=== PATIENT | male | born 1940 | race Caucasian/White ===

== ENCOUNTER 2016-10-12 10:16 | Outpatient (CLI) | payer MEDICARE, OTHER | END 2016-10-12 10:17 | disposition home or self-care (01) | DX: R97.20 Elevated prostate specific antigen [PSA] (principal) ==

== ENCOUNTER 2017-08-21 07:40 | Day surgery (SDC) | payer MEDICARE, OTHER ==
--- NOTE | 2017-08-21 07:31 | HISTORY & PHYSICAL EXAMINATION ---
HPI - History of Present Illness HPI Comment/Other: Patient is here for initial reducible right inguinal hernia and umbilical hernia. Current Meds: None Physical Exam General: well developed, well nourished, in no acute distress Lungs: clear bilaterally to A & P Heart: regular rate and rhythm, S1, S2 without murmurs, rubs, gallops, or clicks Abdomen: Small umbilical hernia easily reducible and fascial defect feels to be less than 1 cm. Genitalia: Moderate sized right inguinal hernia is easily reducible. No left inguinal hernia noted to Pulses: pulses normal in all 4 extremities Extremities: no clubbing, cyanosis, edema, or deformity noted with normal full range of motion of all joints Cervical Nodes: no significant adenopathy Psych: alert and cooperative; normal mood and affect; normal attention span and concentration Impression & Recommendations: Problem # 1: right inguinal hernia, umbilical hernia Will proceed with surgical repair. PMH/PSH - Past Medical History Cardiovascular: positive: Hypertension, Pulmonary embolism Respiratory: positive: COPD Endocrine/Autoimmune: positive: None GI: positive: None : positive: Benign prostate hypertrophy HEENT: positive: None Psych: positive: None Musculoskeletal: positive: Chronic back pain Derm: positive: Other MRSA Hx?: No - Past Surgical History Ortho: positive: Arthroscopic surgery HEENT: positive: Cataracts Social & Family Hx - Social History Does the pt smoke?: Yes Smoking Status: Former smoker ETOH Use: Wine Meds/Allgy - Home Medications Home Medications: Ambulatory Orders Medication Instructions Recorded Confirmed No Known Home Medications [No 08/04/17 Known Home Medications] - Allergies Allergies/Adverse Reactions: Allergies Allergy/AdvReac Type Severity Reaction Status Date / Time No Known Drug Allergies Allergy Verified 08/04/17 12:42
[2017-08-21] MEDS ORDERED: ceFAZolin 2 GM/50 ML 2 GM/50 ML BAG IV ONE (07:55)
[2017-08-21] MEDS ORDERED: LACTATED RINGERS 1,000 ML IV ONE ×2 (08:00→09:33)
[2017-08-21] MEDS ORDERED: ACETAMINOPHEN 1,000 MG/100 ML 100 ML IV ONE (09:30)
[2017-08-21] MEDS ORDERED: ePHEDrine 50 MG/ML VIAL IVP ONE (09:30)
[2017-08-21] MEDS ORDERED: GLYCOPYRROLATE 1 MG/5 ML VIAL IVP ONE (09:30)
[2017-08-21] MEDS ORDERED: NEOSTIGMINE 1 MG/1 ML 10 ML MDV IVP ONE (09:30)
[2017-08-21] MEDS ORDERED: ROCURONIUM 50 MG/5 ML VIAL IVP ONE (09:30)
[2017-08-21] MEDS ORDERED: LIDOCAINE-MPF 2% 5 ML VIAL IM ONE (09:30)
[2017-08-21] MEDS ORDERED: DEXAMETHASONE 4 MG/ML VIAL IVP ONE (09:30)
[2017-08-21] MEDS ORDERED: MIDAZOLAM 2 MG/2 ML VIAL IVP ONE (09:30)
[2017-08-21] MEDS ORDERED: PROPOFOL 200 MG/20 ML VIAL IVP ONE (09:30)
[2017-08-21] MEDS ORDERED: ONDANSETRON 4 MG/2 ML VIAL IVP ONE (09:30)
[2017-08-21] MEDS ORDERED: fentaNYL 100 MCG/2 ML VIAL IVP ONE (09:30)
[2017-08-21] MEDS ORDERED: BUPIVACAINE 0.5% PF 30 ML VIAL INFIL ONE (09:32)
--- NOTE | 2017-08-21 11:48 | PROCEDURE REPORT ---
DATE OF SERVICE: 08/21/2017 Physician: Nona Gordon MD DATE OF SURGERY: 08/21/2017 BULB WEEDER: Dr. Gordon. PREOPERATIVE DIAGNOSIS: Umbilical and right inguinal hernias which are reducible. POSTOPERATIVE DIAGNOSIS: Umbilical and right inguinal hernias which are reducible. INDICATIONS FOR PROCEDURE: This is a 77-year-old gentleman with a symptomatic initial reducible right inguinal hernia and an incidental umbilical hernia. FINDINGS: After obtaining informed consent from the patient, he was brought into the operating room, positioned on the operating table in the supine position, taking note of pressure points. He was intubated by Anesthesia. SCD boots were applied. He was then prepped and draped in the usual sterile fashion. A timeout was taken according to protocol. An infraumbilical 1.5 cm incision was created and deepened down to the anterior rectus sheath. This was incised towards the right lateral abdomen approximately 1 cm in length. The underlying rectus muscle was visualized. S retractors were placed in the retrorectal space and the surgeon's finger used to dissect the space. The dissecting balloon was then inserted in the space and inflated under direct visualization. The balloon was allowed to create hemostasis and then was removed after a period of a few minutes, the operative balloon was then placed in the retrorectal space and the space insufflated. Two 5 mm incisions were created in the midline and the trocars were inserted under visualization. The anatomic landmarks were identified including the pubic bone, the epigastric vessels and the cord structures. The filmy tissue overlying the pubic bone was cleared to create space for the mesh. The right lateral abdominal wall was then dissected dissecting the peritoneum down. I worked my way towards the cord structures, protecting the epigastric vessels along their length. The cord structures were then identified and a small partially reduced indirect hernia was noted. The hernia sac was completely dissected from the cremasteric fibers. The vas deferens and cord structures were identified. I then turned my attention to the direct space and a small direct hernia was also noted in this location. The hernia sac was fully reduced, After achieving adequate dissection and reduction of both hernia sacs, a large, medium weight right Bard mesh was inserted through the umbilical port and was positioned appropriately. It was tacked with one tack above the pubic symphysis, ensuring the overlap from the midline of approximately 1 cm and laterally to the right lateral abdominal wall, ensuring palpation of the surgeon's contralateral hand to avoid nerve structures. The mesh was then held into place while the retrorectal space was desufflated, ensuring that the hernia sac was well away from the hernia defects. The trocars were then removed. Attention was then placed to the umbilical hernia. The umbilical stalk was from the fascial defect. A small hernia defect was noted. This was connected to the inferior incision with electrocautery. The defect was then closed with 3 interrupted [id number] 2-0 Prolene sutures. The umbilical skin was then tacked to the anterior rectus sheath with 3-0 Vicryl. 30 mL of local anesthetic was administered into the incisions. The incisions were then closed with running 4-0 Monocryl. Dermabond was applied. The patient was extubated and taken to the recovery room in stable condition. ESTIMATED BLOOD LOSS: 10 mL COMPLICATIONS: None. PROCEDURES PERFORMED: Laparoscopic right inguinal hernia repair with mesh and umbilical hernia repair. TD: 08/21/2017 12:47 DYLAN
[2017-08-21 12:40] VITALS: BP 156/84
== END 2017-08-21 07:41 | disposition home or self-care (01) ==
LOC: SDS 07:40
PROVIDERS: ATTEND Surgery
PROC: 0YU54JZ Supplement Right Inguinal Region with Synthetic Substitute, Percutaneous Endoscopic Approach (ICD-10-PCS; principal; 2017-08-21 09:00)
PROC: 0WQF0ZZ Repair Abdominal Wall, Open Approach (ICD-10-PCS; 2017-08-21 09:00)
DX: K40.90 Unilateral inguinal hernia, without obstruction or gangrene, not specified as recurrent (principal); K42.9 Umbilical hernia without obstruction or gangrene; I10 Essential (primary) hypertension; Z86.711 Personal history of pulmonary embolism
CPT/HCPCS: 49585; 49650; C1781; J0131; J0690; J7120

== ENCOUNTER 2017-11-20 11:16 | Outpatient (CLI) | payer MEDICARE, OTHER | END 2017-11-20 11:17 | disposition home or self-care (01) | LOC: LAB.F 11:16 | PROVIDERS: ATTEND Urology | DX: R97.20 Elevated prostate specific antigen [PSA] (principal) | CPT/HCPCS: 36415; 84153 ==

== ENCOUNTER 2017-12-04 12:58 | Outpatient (CLI) | payer MEDICARE, OTHER ==
--- NOTE | 2017-12-04 15:43 | MRI Report ---
EXAM: MRI PELVIS WITHOUT CONTRAST EXAM DATE: 12/04/2017 01:45 PM. CLINICAL HISTORY: Muscle weakness, sensory neuropathy, weakness. COMPARISON: None. TECHNIQUE: Multiplanar, multisequence T1-weighted and fluid-sensitive sequences of the pelvis without contrast. Other: None. FINDINGS: Bones: No fractures or subluxations. No marrow edema or bone lesions. Lower Lumbar Spine: Degenerative disk space narrowing at L5-S1. Sacroiliac Joints: No effusion or sacroiliitis. Right Hip: No acetabular retroversion. Femoral head-neck offset is within normal limits. No effusion. Left Hip: No acetabular retroversion. Femoral head-neck offset is within normal limits. No effusion. Symphysis Pubis: Unremarkable. Musculature: Mild fatty atrophy and minimal edema at the gluteus kris muscles. Mild edema within t he visualized proximal right vastus muscles. Pelvic Cavity: Numerous diverticuli at the urinary bladder. Postoperative changes at the prostate gla nd from previous transurethral resection. Sigmoid colon diverticulosis. No free fluid or lymphadenopa thy. Other: The visualized sciatic nerves are unremarkable. No bursitis. The subcutaneous tissues are unre markable. IMPRESSION: 1. Degenerative disk space narrowing at L5-S1. 2. Mild fatty atrophy and minimal edema at the gluteus kris muscles. Mild edema within the visuali zed proximal right vastus muscles. The findings may represent strain or inflammation. 3. Numerous bladder diverticuli. Postoperative changes at the prostate gland. 4. Sigmoid colon diverticulosis. [facility] MUSCULOSKELETAL RADIOLOGY SECTION Referring Provider Line: [phone] SITE ID: [id number]
--- NOTE | 2017-12-05 07:27 | MRI Report ---
EXAM: MRI LUMBAR SPINE WITHOUT CONTRAST EXAM DATE: 12/04/2017 01:36 PM. CLINICAL HISTORY: Muscle weakness. Sensory neuropathy. Elevated PSA. COMPARISON: No prior lumbar MRI. Conventional radiographic correlation 10/20/2014. TECHNIQUE: Multiplanar, multisequence T1-weighted and fluid-sensitive sequences of the lumbar spine f rom T12 to S1 without contrast. Other: None. FINDINGS: Spinal Cord: The conus terminates at T12. The conus medullaris and cauda equina are unremarkable. Alignment: Alignment is unchanged including mild upper lumbar levoconvex asymmetric spinal curvature. Modic type I degenerative endplate signal changes at L1-L2, L2-L3 and to a lesser degree at L5-S1. 8 mm in diameter focus of T1 and T2 hypointensity in the L1 vertebral body. Anteriorly in the L4 vert ebral body there is a larger similar region of hypointense signal measuring about 2 cm. Bone Marrow: Five gpu-zpf-aaliufq lumbar vertebral bodies are assumed. No gross fractures or bone les ions. No bone marrow edema. Disk Levels/Facets: T12-L1: Unremarkable. L1-L2: Mild degenerative disk disease and facet arthropathy. Minimal annular bulge. No significant st enosis. L2-L3: Moderate degenerative disk disease. Disk space narrowing. Schmorl's nodes. Minimal facet arthr opathy. Shallow broad-based disk bulge with extension laterally into both foramina. Patent central ca nal. Foraminal stenosis is present bilaterally, minimal to mild on the left and moderate on the right . L3-L4: Mild to moderate degenerative disk disease. Minimal facet arthropathy. Broad-based disk bulge. Patent central canal. Patent right foramen. Minimal left foraminal stenosis. L4-L5: Mild degenerative disk disease. Moderate facet arthropathy. Shallow broad-based disk bulge. Mi nimal central stenosis. Glqo-kg-ccygohqm bilateral lateral recess stenosis. Patent right foramen. Mil l-eo-whtlyvis left foraminal stenosis contributed to by facet hypertrophy. L5-S1: Mild to moderate degenerative disk disease. Unremarkable facets. Minimal annular disk bulge. S mall posterior annular fissure. No significant appearing stenosis. Musculature: Mild diffuse posterior paraspinal muscle fatty atrophy. Other: None. IMPRESSION: 1. There are two separate regions of hypointense signal in the L1 and in the L4 vertebral bodies. The se are nonspecific but given the history of elevated PSA may be considered worrisome for metastatic p rostate cancer. Additional imaging could include whole body Nuclear Medicine bone scan versus 3-6 mon th MRI follow-up. Alternatively, immediate follow-up with lumbar spine CT might also be considered as a complementary modality to assess for potential bone pathology. 2. Shxm-ja-kesuwprz chronic multilevel degenerative lumbar spinal spondylosis. Levoconvex asymmetric upper lumbar spine curvature is again seen. 3. No high-grade central stenosis. 4. Mjnu-fm-uepjotvp bilateral lateral recess stenosis at L4-L5. 5. Broad-based disk bulges with osteophyte are present at multiple levels but there is no evidence fo r acute or focal extruded disk fragment. 6. Facet arthropathy is most severe at the L4-L5 level. 7. Multilevel degenerative foraminal narrowing. This appears most prominent on the right at L2-L3. Comment: The following findings are so common in adults without low back pain that while we report th eir presence, they must be interpreted with caution and in the context of the clinical situation. (Re [place] Conway et al, Spine 2001) Prevalence of findings in patients without low back pain: Disk degeneration (any evidence): 92% Disk desiccation/T2 signal loss: 83% Disk height loss: 56% Disk bulge: 64% Disk protrusion: 32% Annular tear/high intensity zone: 38% [facility] Referring Provider Line: [phone] SITE ID: [id number]
== END 2017-12-04 12:59 | disposition home or self-care (01) ==
LOC: DI 12:58
PROVIDERS: ATTEND Psychiatry & Neurology Neurology
DX: M62.81 Muscle weakness (generalized) (principal); G62.9 Polyneuropathy, unspecified; R29.898 Other symptoms and signs involving the musculoskeletal system; R97.20 Elevated prostate specific antigen [PSA]; M51.37 Other intervertebral disc degeneration, lumbosacral region; M47.816 Spondylosis without myelopathy or radiculopathy, lumbar region
CPT/HCPCS: 72148; 72195

== ENCOUNTER 2017-12-23 08:39 | Outpatient (CLI) | payer MEDICARE, OTHER ==
[2017-12-23] MEDS ORDERED: IOPAMIDOL-300 100 ML VIAL IVP ONE (09:04)
[2017-12-23] MEDS ORDERED: IOPAMIDOL-300 50 ML VIAL PO ONE (09:04)
[2017-12-23] MEDS ORDERED: IOPAMIDOL-300 50 ML VIAL ONE (09:06)
[2017-12-23] MEDS ORDERED: IOPAMIDOL-300 100 ML VIAL ONE (09:06)
[2017-12-23 09:34] LABS: BASOPHILS # (AUTO) 0.1 10^3/uL (0.0-0.1); BASOPHILS % (AUTO) 1.2 %; EOSINOPHILS # (AUTO) 0.2 10^3/uL (0.0-0.7); EOSINOPHILS % (AUTO) 4.1 %; HGB - HEMOGLOBIN 13.7 g/dL (14.0-18.0); LYMPHOCYTES # (AUTO) 1.2 10^3/uL (1.5-3.5); LYMPHOCYTES % (AUTO) 28.2 %; MEAN CORPUSCULAR VOLUME 94.3 fL (80.0-94.0); MEAN PLATELET VOLUME 7.9 fL (7.4-11.4); MONOCYTES # (AUTO) 0.5 10^3/uL (0.0-1.0); MONOCYTES % (AUTO) 12.1 %; NEUTROPHILS # (AUTO) 2.4 10^3/uL (1.5-6.6); NEUTROPHILS % (AUTO) 54.4 %; PLT - PLATELET COUNT 198 10^3/uL (130-450); RED BLOOD COUNT 4.27 10^6/uL (4.70-6.10); RED CELL DISTRIBUTION WIDTH 13.2 % (12.0-15.0); WHITE BLOOD COUNT 4.3 x10^3/uL (4.8-10.8)
[2017-12-23 09:47] LABS: ALBUMIN 3.2 g/dL (3.2-5.5); ALBUMIN/GLOBULIN RATIO 1.2 (1.0-2.2); CALCIUM 8.9 mg/dL (8.5-10.3); TOTAL PROTEIN 5.9 g/dL (6.7-8.2)
--- NOTE | 2017-12-24 22:16 | CT Report ---
EXAM: CT ABDOMEN AND PELVIS EXAM DATE: 12/23/2017 10:23 AM. CLINICAL HISTORY: Ventral hernia post repair in August 2017. History of TURP. COMPARISONS: MR pelvis 12/04/2017. TECHNIQUE: Routine helical CT imaging was performed through the abdomen and pelvis. IV contrast: CE. Enteric contrast: No. Reconstructions: Coronal and sagittal. In accordance with CT protocol optimization, one or more of the following dose reduction techniques w ere utilized for this exam: automated exposure control, adjustment of mA and/or KV based on patient s ize, or use of iterative reconstructive technique. FINDINGS: Lung Bases: Unremarkable. Liver: Tiny 2 mm round hypoattenuating focus in the left hepatic lobe, too small to characterize furt her (12/18). Gallbladder/Bile Ducts: The gallbladder is contracted. No visualized stones or biliary ductal dilatat ion. Spleen: Normal. Pancreas: Normal. Adrenal Glands: Normal. Kidneys and Ureters: 3 mm nonobstructive intrarenal calculus in the left upper pole (24). A 7 mm ro und hypoattenuating focus in the left lower pole cortex likely represents a cyst (33). No hydroneph rosis or hydroureter. Peritoneal Cavity/: Mild diffuse mesenteric edema. Colonic diverticulosis. No evidence for bowel obst ruction or focal inflammatory process. The appendix is normal. No free fluid, pneumoperitoneum, or ad enopathy. Pelvic Organs: Diffusely thickened bladder wall with numerous diverticula. Post TURP. Vasculature: Mild atherosclerotic calcifications within the aorta and iliac arteries. Bones: Mild left convex curvature centered at L1-L2. Multilevel degenerative disk disease, most prono unced and moderate to severe at L2-L3. Moderate to severe facet arthropathy at L4-L5. No acute bony a bnormality. Other: The anterior wall of a loop of transverse colon protrudes into a wide rectus diastases. IMPRESSION: 1. The anterior loop of wall of a loop of transverse colon protrudes into a right rectus diastases. 2. Colonic diverticulosis without CT evidence for acute diverticulitis. 3. Nonobstructive left intrarenal calculus. 4. Mild diffuse mesenteric edema, nonspecific, can be seen with volume overload, CHF, other etiologie s. 5. Diffusely thickened bladder wall with numerous diverticula, possibly sequela of chronic obstructiv e uropathy. [facility] Referring Provider Line: [phone] SITE ID: [id number]
== END 2017-12-23 08:40 | disposition home or self-care (01) ==
LOC: LAB 08:39
PROVIDERS: ATTEND Internal Medicine Gastroenterology
DX: Q79.59 Other congenital malformations of abdominal wall (principal); K43.2 Incisional hernia without obstruction or gangrene; K57.30 Diverticulosis of large intestine without perforation or abscess without bleeding; M62.08 Separation of muscle (nontraumatic), other site; I10 Essential (primary) hypertension
CPT/HCPCS: 36415; 74177; 80053; 85025; Q9967

== ENCOUNTER 2017-12-29 10:23 | Outpatient (CLI) | payer MEDICARE, OTHER ==
--- NOTE | 2017-12-29 17:01 | Nuclear Medicine Report ---
EXAM: TRIPLE-PHASE BONE SCAN LIMITED WHOLE-BODY BONE SCAN EXAM DATE: 12/29/2017 04:17 PM. CLINICAL HISTORY: BONE LESION,ELEVATED PSA,CHRONIC MIDLINE LOW BACK. COMPARISON: Abdomen/pelvis CT 12/23/2017. TECHNIQUE: Patient was injected with 29.3 mCi of technetium 99m MDP intravenously with flow phase irina ma camera imaging anteriorly over the lumbar spine and, 5 seconds per frame for 1 minute. Subsequentl y, blood pool images of the lumbar spine were obtained. The patient returned 3 hours later for multip le spot images of the lumbar spine. Whole-body anterior and posterior images are also obtained. FINDINGS: Flow Phase: There is symmetric flow to the lumbar spine. Blood Pool Phase: Images show no focal increased or decreased uptake. Delayed Phase: There is a small focus of mildly increased uptake on the right side of L2-L3 correspon ding with degenerative disk narrowing and endplate sclerosis. Whole body images show no suspicious foci of increased radiotracer uptake. There is a small focus of increased uptake in the right patella which is presumably degenerative. IMPRESSION: 1. Right-sided degenerative endplate uptake at L2-L3. 2. Otherwise negative exam. [facility] Referring Provider Line: [phone] SITE ID: [id number]
== END 2017-12-29 10:24 | disposition home or self-care (01) ==
LOC: DI 10:23
PROVIDERS: ATTEND Psychiatry & Neurology Neurology
DX: M89.9 Disorder of bone, unspecified (principal); R97.20 Elevated prostate specific antigen [PSA]; M54.5 Low back pain; G89.29 Other chronic pain; M51.36 Other intervertebral disc degeneration, lumbar region
CPT/HCPCS: 78306; A9503

== ENCOUNTER 2018-07-25 12:35 | Outpatient (CLI) | payer MEDICARE, OTHER ==
[2018-07-25] MEDS ORDERED: GADOBUTROL 10 MMOL/10 ML VIAL IVP ONE (13:13)
--- NOTE | 2018-07-26 08:54 | MRI Report ---
Reason: COMPLAINTS OF MEMORY DISTURBANCE Procedure Date: 07/25/2018 Accession Number: [id number] / [id number] Procedure: MRI - Brain W/WO CPT Code: FULL RESULT: EXAM: MRI BRAIN WITHOUT AND WITH CONTRAST EXAM DATE: 07/25/2018 01:19 PM. CLINICAL HISTORY: 78-year-old male. COMPLAINTS OF MEMORY DISTURBANCE. COMPARISON: None. TECHNIQUE: Multiplanar, multisequence T1-weighted and fluid-sensitive MR sequences of the brain were performed. Sequences optimized for routine evaluation. Other: None. IV Contrast: 10 ML Gadavist. FINDINGS: Brain Volume: Normal for age. Parenchyma: No acute hemorrhage, mass, or infarct. Scattered T2/FLAIR hyperintense periventricular, deep, and subcortical white matter lesions within cerebral hemispheres bilaterally. No parenchymal foci susceptibility artifact. No abnormal enhancement. Ventricles/Cisterns: No hydrocephalus. No abnormal extra-axial fluid collection or hemorrhage. Orbits: Symmetric and unremarkable. Sella Turcica: The pituitary gland, cavernous sinuses, suprasellar cistern and optic chiasm are unremarkable. IAC: Symmetric and unremarkable. Vasculature: Normal signal flow void is seen in the major arterial structures at the skull base. The dural sinuses are patent and enhance normally. Sinuses: No acute sinus disease. Bones: No focal pathologic appearing marrow signal changes. Other: None. IMPRESSION: 1. No MRI evidence of acute intracranial abnormality. Specifically, no evidence of acute or subacute infarct, acute intracranial hemorrhage, mass, midline shift, or hydrocephalus. No abnormal intracranial enhancement. 2. Qualitatively, the brain volume appears normal for age. 3. Scattered T2/FLAIR hyperintense periventricular, deep, and subcortical white matter lesions within cerebral hemispheres bilaterally. 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 [facility]
== END 2018-07-25 12:36 | disposition home or self-care (01) ==
LOC: DI 12:35
PROVIDERS: ATTEND Psychiatry & Neurology Neurology
DX: R41.3 Other amnesia (principal)
CPT/HCPCS: 70553; A9585

== ENCOUNTER 2019-01-17 11:10 | Outpatient (CLI) | payer MEDICARE, OTHER | END 2019-01-17 11:11 | disposition home or self-care (01) | LOC: LAB.F 11:10 | PROVIDERS: ATTEND Urology | DX: R97.20 Elevated prostate specific antigen [PSA] (principal) | CPT/HCPCS: 36415; 84153 ==

== ENCOUNTER 2019-03-13 | Outpatient (CLI) | payer MEDICARE, OTHER | END 2019-03-13 12:46 | disposition home or self-care (01) | DX: M51.26 Other intervertebral disc displacement, lumbar region (principal); M51.36 Other intervertebral disc degeneration, lumbar region; M47.816 Spondylosis without myelopathy or radiculopathy, lumbar region; M47.817 Spondylosis without myelopathy or radiculopathy, lumbosacral region; M41.9 Scoliosis, unspecified; M48.061 Spinal stenosis, lumbar region without neurogenic claudication; M48.07 Spinal stenosis, lumbosacral region | CPT/HCPCS: 72148 ==

== ENCOUNTER 2019-10-22 10:49 | Outpatient (CLI) | payer MEDICARE, OTHER ==
[2019-10-22 17:12] LABS: BASOPHILS # (AUTO) 0.1 10^3/uL (0.0-0.1); BASOPHILS % (AUTO) 1.4 %; EOSINOPHILS # (AUTO) 0.2 10^3/uL (0.0-0.7); HGB - HEMOGLOBIN 13.9 g/dL (14.0-18.0); LYMPHOCYTES # (AUTO) 0.9 10^3/uL (1.5-3.5); LYMPHOCYTES % (AUTO) 20.5 %; MEAN CORPUSCULAR HEMOGLOBIN 31.9 pg (27.0-31.0); MEAN CORPUSCULAR HGB CONC 32.5 g/dL (32.0-36.0); MEAN CORPUSCULAR VOLUME 98.2 fL (80.0-94.0); MEAN PLATELET VOLUME 10.2 fL (7.4-11.4); MONOCYTES # (AUTO) 0.5 10^3/uL (0.0-1.0); MONOCYTES % (AUTO) 11.1 %; NEUTROPHILS # (AUTO) 2.8 10^3/uL (1.5-6.6); PLT - PLATELET COUNT 253 10^3/uL (130-450); RED BLOOD COUNT 4.36 10^6/uL (4.70-6.10); RED CELL DISTRIBUTION WIDTH 12.6 % (12.0-15.0); WHITE BLOOD COUNT 4.4 x10^3/uL (4.8-10.8)
[2019-10-22 17:23] LABS: ALBUMIN 3.3 g/dL (3.2-5.5); ALBUMIN/GLOBULIN RATIO 1.1 (1.0-2.2); BILIRUBIN,TOTAL 0.6 mg/dL (0.2-1.0); CALCIUM 8.7 mg/dL (8.5-10.3); CREATININE 0.8 mg/dL (0.6-1.2); TOTAL PROTEIN 6.2 g/dL (6.7-8.2)
[2019-10-24 13:54] LABS: ANA SCREEN NEGATIVE (NEGATIVE)
== END 2019-10-22 10:50 | disposition home or self-care (01) ==
LOC: LAB.S 10:49
PROVIDERS: ATTEND Nurse Practitioner Family
DX: L24.9 Irritant contact dermatitis, unspecified cause (principal); L21.8 Other seborrheic dermatitis; R21 Rash and other nonspecific skin eruption; Z85.828 Personal history of other malignant neoplasm of skin; L29.8 Other pruritus
CPT/HCPCS: 36415; 80053; 82784; 85025; 85651; 86038

== ENCOUNTER 2020-03-12 15:35 | Outpatient (CLI) | payer MEDICARE, OTHER | END 2020-03-12 15:36 | disposition home or self-care (01) | LOC: LAB.S 15:35 | PROVIDERS: ATTEND Specialist | DX: C61 Malignant neoplasm of prostate (principal); D47.2 Monoclonal gammopathy | CPT/HCPCS: 36415; 84153 ==

== ENCOUNTER 2020-03-27 13:06 | Emergency (ER) | payer MEDICARE, OTHER ==
[2020-03-27 13:34] LABS: BILIRUBIN,URINE NEGATIVE (NEGATIVE); GLUCOSE, URINE (UA) NEGATIVE (NEGATIVE); KETONES,URINE (UA) NEGATIVE (NEGATIVE); LEUKOCYTE ESTERASE, URINE NEGATIVE (NEGATIVE); NITRITE,URINE POSITIVE (NEGATIVE); OCCULT BLOOD,URINE MODERATE (NEGATIVE); PROTEIN,URINE 100 mg/dL (NEGATIVE); UROBILINOGEN,URINE 0.2 (NORMAL) E.U./dL (NORMAL)
[2020-03-27 13:37] LABS: CLARITY,URINE HAZY (CLEAR)
[2020-03-27 13:40] LABS: BACTERIA,URINE Few /HPF (None Seen); SQUAMOUS EPITHELIAL CELL,UR RARE Squamous (<= Few)
[2020-03-27 13:47] LABS: BASOPHILS % (AUTO) 0.6 %; EOSINOPHILS # (AUTO) 0.2 10^3/uL (0.0-0.7); EOSINOPHILS % (AUTO) 2.2 %; LYMPHOCYTES # (AUTO) 1.2 10^3/uL (1.5-3.5); LYMPHOCYTES % (AUTO) 16.5 %; MEAN CORPUSCULAR HEMOGLOBIN 32.1 pg (27.0-31.0); MEAN CORPUSCULAR HGB CONC 33.3 g/dL (32.0-36.0); MEAN CORPUSCULAR VOLUME 96.3 fL (80.0-94.0); MEAN PLATELET VOLUME 9.3 fL (7.4-11.4); MONOCYTES % (AUTO) 14.1 %; NEUTROPHILS # (AUTO) 4.6 10^3/uL (1.5-6.6); NEUTROPHILS % (AUTO) 66.3 %; PLT - PLATELET COUNT 233 10^3/uL (130-450); RED BLOOD COUNT 4.36 10^6/uL (4.70-6.10); RED CELL DISTRIBUTION WIDTH 12.8 % (12.0-15.0)
[2020-03-27 14:01] LABS: ALBUMIN 3.4 g/dL (3.2-5.5); ALBUMIN/GLOBULIN RATIO 1.1 (1.0-2.2); BILIRUBIN,TOTAL 1.2 mg/dL (0.2-1.0); CALCIUM 9.3 mg/dL (8.5-10.3); CREATININE 0.9 mg/dL (0.6-1.2); TOTAL PROTEIN 6.5 g/dL (6.7-8.2)
[2020-03-27] MEDS ORDERED: LIDOCAINE 2% URO-JET 5 ML SYRINGE UR STA (16:22)
--- NOTE | 2020-03-27 16:24 | ED Physician Documentation ---
History of Present Illness - Stated complaint Stated Complaint: ABD PX - Chief complaint Chief Complaint: Abd Pain - History obtained from History obtained from: Patient - History of Present Illness Timing: Yesterday Pain level max: 6 Pain level now: 5 - Additonal information Additional information: 80-year-old male presents to the emergency department stating that he has lower abdominal pain and a "flare of his BPH". He also states he has noticed scrotal swelling and pain. Has had a hernia repair in the past. Feels like his lower abdomen is swollen. Has had increased flatulence as well. No diarrhea. No vomiting. No fevers. No recent travel. No recent antibiotics. Review of Systems Constitutional: denies: Fever, Chills Cardiac: denies: Chest pain / pressure Respiratory: denies: Cough GI: reports: Abdominal Pain, Abdominal Swelling. denies: Nausea, Vomiting, Diarrhea, Hematemesis, Bloody / black stool Skin: denies: Rash Musculoskeletal: denies: Neck pain, Back pain Neurologic: denies: Headache PD PAST MEDICAL HISTORY - Past Medical History Respiratory: COPD - Past Surgical History Past Surgical History: Yes HEENT: Cataracts - Present Medications Home Medications: Ambulatory Orders Medication Instructions Recorded Confirmed B12 Injection 1 INJ ONCE 07/23/18 Cefdinir 300 mg PO BID #20 capsule 03/27/20 - Allergies Allergies/Adverse Reactions: Allergies Allergy/AdvReac Type Severity Reaction Status Date / Time amoxicillin Allergy Anaphylaxis Verified 03/27/20 13:19 - Social History Does the pt smoke?: Yes Smoking Status: Former smoker PD ED PE NORMAL - Vitals Vital signs reviewed: Yes - General General: Alert and oriented X 3, No acute distress, Well developed/nourished - HEENT HEENT: Moist mucous membranes - Neck Neck: Supple, no meningeal sign - Cardiac Cardiac: RRR, Strong equal pulses - Respiratory Respiratory: No respiratory distress, Clear bilaterally - Abdomen Abdomen: Normal bowel sounds, Soft, Non tender, Non distended, Other (Lower abdominal swelling, tender to palpation over the bladder. Scrotal swelling with diffuse tenderness.) - Male Male : Other ( Scrotal swelling with diffuse tenderness.) - Back Back: No CVA TTP, No spinal TTP - Derm Derm: Warm and dry - Extremities Extremities: No deformity - Neuro Neuro: Alert and oriented X 3 - Psych Psych: Normal mood, Normal affect Results - Vitals Vitals: Vital Signs - 24 hr 03/27/20 03/27/20 03/27/20 13:14 17:00 19:32 Temperature 36.8 C 36.7 C Heart Rate 69 65 68 Respiratory 17 20 15 Rate Blood Pressure 158/90 H 166/79 H 132/72 H O2 Saturation 100 99 100 Oxygen O2 Source Room air - Labs Labs: Laboratory Tests 03/27/20 03/27/20 03/27/20 13:28 13:41 13:41 WBC 7.0 RBC 4.36 L Hgb 14.0 Hct 42.0 MCV 96.3 H MCH 32.1 H MCHC 33.3 RDW 12.8 Plt Count 233 MPV 9.3 Neut # (Auto) 4.6 Lymph # (Auto) 1.2 L Owen # (Auto) 1.0 Eos # (Auto) 0.2 Baso # (Auto) 0.0 Absolute Nucleated RBC 0.00 Nucleated RBC % 0.0 Sodium 135 Potassium 4.5 Chloride 102 Carbon Dioxide 28 Anion Gap 5.0 L BUN 24 H Creatinine 0.9 Estimated GFR (MDRD) 82 L Glucose 107 H Calcium 9.3 Total Bilirubin 1.2 H AST 19 ALT 17 Alkaline Phosphatase 58 Total Protein 6.5 L Albumin 3.4 Globulin 3.1 Albumin/Globulin Ratio 1.1 Lipase 30 Urine Color YELLOW Urine Clarity HAZY Urine pH 5.0 Ur Specific [place] >=1.030 H Urine Protein 100 H Urine Glucose (UA) NEGATIVE Urine Ketones NEGATIVE Urine Occult Blood MODERATE H Urine Nitrite POSITIVE H Urine Bilirubin NEGATIVE Urine Urobilinogen 0.2 (NORMAL) Ur Leukocyte Esterase NEGATIVE Urine RBC 11-25 H Urine WBC 6-10 H Ur Squamous Epith Cells RARE Squamous Urine Bacteria Few Ur Microscopic Review INDICATED Urine Culture Comments INDICATED - Rads (name of study) CT abd/pelvis Radiology: Prelim report reviewed, EMP read contemporaneously, See rad report PD MEDICAL DECISION MAKING - ED course Complexity details: reviewed results, re-evaluated patient, considered differential, d/w patient ED course: 80-year-old male with a UTI and urinary retention. Bladder was drained with a catheter. Rocephin given. We discussed leaving the catheter in place, but he wants to try at home and see if he can continue to void on his own as the swelling decreases. No acute findings on CT scan of the abdomen pelvis. Patient is well-appearing, nontoxic. Afebrile. Patient counseled regarding signs and symptoms for which I believe and urgent re-evaluation would be necessary. Patient with good understanding of and agreement to plan and is comfortable going home at this time This document was made in part using voice recognition software. While efforts are made to proofread this document, sound alike and grammatical errors may occur. No imaging explanation is found for the patient's presenting symptoms. A Luciano catheter decompresses the urinary bladder. Generalized body wall edema is seen. Please correlate with fluid retention. Resolution of the previously seen anterior abdominal wall hernia. Diverticulosis can be seen, without nemesio findings of active diverticulitis. Departure - Departure Disposition: Home, Self Care Clinical Impression: Urinary retention UTI (urinary tract infection) Qualifiers: Urinary tract infection type: acute cystitis Hematuria presence: without hematuria Qualified Code(s): N30.00 - Acute cystitis without hematuria Condition: Good Instructions: ED UTI Cystitis Male Follow-Up: TATA LUCIA PA-C [Primary Care Provider] - Within 1 week Prescriptions: Cefdinir 300 mg PO BID #20 capsule Comments: Take all antibiotics until gone. Return if you worsen. Follow-up with your doctor within 1 week. Discharge Date/Time: 03/27/20 19:34
[2020-03-27] MEDS ORDERED: cefTRIAXone 1 GM VIAL IVP STA (16:26)
[2020-03-27] MEDS ORDERED: IOVERSOL 320 100 ML VIAL IVP ONE ×2 (16:47→18:55)
--- NOTE | 2020-03-27 18:31 | CT Report ---
PROCEDURE: Abdomen/Pelvis W INDICATIONS: lower abd pain, swelling, urinary retention CONTRAST: IV CONTRAST: Optiray 320 ml: 100 PO CONTRAST: *NO PO CONTRAST TECHNIQUE: After the administration of Isovue 320 contrast, 5 mm thick sections acquired from the diaphragms to the symphysis. 5 mm thick coronal and sagittal reformats were acquired. For radiation dose reductio n, the following was used: automated exposure control, adjustment of mA and/or kV according to patie nt size. COMPARISON: 12/23/2017 FINDINGS: Image quality: Excellent. ABDOMEN: Lung bases: Lung bases are clear. Heart size is normal. Solid organs: Liver and spleen are normal in size and enhancement. Gallbladder wall does not appear thickened. Biliary system is non dilated. Pancreas enhances normally. No adrenal nodules. Kidn eys demonstrate normal size and enhancement, without hydronephrosis. Subcentimeter presumed renal cy sts are seen, which are poorly evaluated given the phase of contrast enhancement. Peritoneum and bowel: Bowel loops demonstrate normal wall thickness and caliber. No free fluid or a ir. Diverticulosis can be seen, without nemesio findings of active diverticulitis. Nodes and vessels: No retroperitoneal or mesenteric adenopathy by size criteria. Aorta and inferior vena cava are normal in size. Atherosclerotic calcification is seen. Miscellaneous: No ventral hernias. The previously seen anterior abdominal wall hernia is no longer seen. Generalized body wall edema is seen. PELVIS: Genitourinary: A Luciano catheter decompresses the bladder. Miscellaneous: No inguinal hernias or adenopathy. Bones: No suspicious bony lesions. No vertebral body compression fractures. Mild levoconvex scolio tic curvature is seen. Age-appropriate degenerative changes are seen, which are most focal at L2-L 3. IMPRESSION: No imaging explanation is found for the patient's presenting symptoms. A Luciano catheter decompresses the urinary bladder. Generalized body wall edema is seen. Please correlate with fluid retention. Resolution of the previously seen anterior abdominal wall hernia. Diverticulosis can be seen, without nemesio findings of active diverticulitis. Incidental note is made of: Levoconvex scoliotic curvature Focal L2-L3 degenerative change Reviewed by: Moustapha Ricardo MD on 03/27/2020 5:30 PM AKDT Approved by: Moustapha Ricardo MD on 03/27/2020 5:30 PM AKDT Station ID: [id number]
[2020-03-27 19:33] VITALS: BP 132/72
== END 2020-03-27 19:34 | disposition home or self-care (01) ==
LOC: ED 13:06
DX: N30.00 Acute cystitis without hematuria (principal); R33.9 Retention of urine, unspecified; N50.89 Other specified disorders of the male genital organs; Z87.891 Personal history of nicotine dependence
CPT/HCPCS: 36415; 51702; 74177; 80053; 81001; 83690; 85025; 87086; 96374; 99284; Q9967; 81003

== ENCOUNTER 2020-10-20 12:33 | Outpatient (CLI) | payer MEDICARE, OTHER | END 2020-10-20 12:34 | disposition home or self-care (01) | LOC: LAB.S 12:33 | PROVIDERS: ATTEND Specialist | DX: C61 Malignant neoplasm of prostate (principal); D47.2 Monoclonal gammopathy | CPT/HCPCS: 36415; 84153 ==

== ENCOUNTER 2021-01-10 08:00 | Outpatient (CLI) | payer MEDICARE, OTHER ==
[2021-01-10 17:33] LABS: BILIRUBIN,URINE NEGATIVE (NEGATIVE); GLUCOSE, URINE (UA) NEGATIVE (NEGATIVE); KETONES,URINE (UA) NEGATIVE (NEGATIVE); LEUKOCYTE ESTERASE, URINE NEGATIVE (NEGATIVE); NITRITE,URINE NEGATIVE (NEGATIVE); OCCULT BLOOD,URINE TRACE-INTA (NEGATIVE); PH,URINE 5.5 PH (5.0-7.5); PROTEIN,URINE 100 mg/dL (NEGATIVE); UROBILINOGEN,URINE 0.2 (NORMAL) E.U./dL (NORMAL)
[2021-01-10 17:42] LABS: BACTERIA,URINE None Seen /HPF (None Seen); CLARITY,URINE CLEAR (CLEAR); MUCUS,URINE Few Strands; RBC,URINE 0-5 /HPF (0-5); SQUAMOUS EPITHELIAL CELL,UR FEW Squamous (<= Few); WBC,URINE 0-3 /HPF (0-3)
== END 2021-01-10 23:59 | disposition home or self-care (01) ==
LOC: LAB.S 08:00
PROVIDERS: ATTEND Emergency Medicine
DX: N41.0 Acute prostatitis (principal); R30.0 Dysuria
CPT/HCPCS: 81001; 87086

== ENCOUNTER 2021-01-24 14:03 | Emergency (ER) | payer MEDICARE, OTHER ==
[2021-01-24 14:36] LABS: BILIRUBIN,URINE NEGATIVE (NEGATIVE); GLUCOSE, URINE (UA) NEGATIVE (NEGATIVE); KETONES,URINE (UA) NEGATIVE (NEGATIVE); LEUKOCYTE ESTERASE, URINE NEGATIVE (NEGATIVE); NITRITE,URINE NEGATIVE (NEGATIVE); OCCULT BLOOD,URINE SMALL (NEGATIVE); PROTEIN,URINE 100 mg/dL (NEGATIVE); UROBILINOGEN,URINE 0.2 (NORMAL) E.U./dL (NORMAL)
[2021-01-24 14:37] LABS: CLARITY,URINE CLEAR (CLEAR)
--- OUTSIDE RECORDS SUMMARY | 2021-01-24 14:47 | EXTERNAL MEDICAL SUMMARY RPT | Continuity of Care Document ---
:1940 Demographics Phone Unavailable Preferred Language Unknown Marital Status Unknown Nondenominational Affiliation Unknown Race Unknown Ethnic Group Unknown Author Organization [facility] Address [address] [place] [address] Phone Allergies Encounters Medications Problems Results
[2021-01-24 14:49] LABS: BACTERIA,URINE Rare /HPF (None Seen); MUCUS,URINE Few Strands; RBC,URINE 0-5 /HPF (0-5); SQUAMOUS EPITHELIAL CELL,UR FEW Squamous (<= Few); WBC,URINE 0-3 /HPF (0-3)
--- NOTE | 2021-01-24 15:37 | ED Physician Documentation ---
PD HPI MALE - Stated complaint Stated Complaint: MALE - Chief complaint Chief Complaint: UTI - History obtained from History obtained from: Patient - History of Present Illness Timing - onset: Today Timing - duration: Days (1) Timing - details: Abrupt onset Pain level max: 5 Pain level now: 4 Associated symptoms: Dysuria, Urinary frequency, Unable to urinate (states small amount of urine at a time.) Similar symptoms before: Diagnosis (urinary retention, prostate cancer) Recently seen: Clinic (is on week 2 of a 3 week course of ciprofloxacin.) Review of Systems Constitutional: denies: Fever, Chills Cardiac: denies: Chest pain / pressure Respiratory: denies: Cough GI: denies: Nausea, Vomiting, Diarrhea Skin: denies: Rash Musculoskeletal: denies: Neck pain, Back pain Neurologic: denies: Headache PD PAST MEDICAL HISTORY - Past Medical History Past Medical History: Yes Respiratory: COPD : Benign prostate hypertrophy - Past Surgical History Past Surgical History: Yes HEENT: Cataracts - Present Medications Home Medications: Ambulatory Orders Medication Instructions Recorded Confirmed B12 Injection 1 INJ ONCE 07/23/18 Cefdinir 300 mg PO BID #20 capsule 03/27/20 07/27/20 - Allergies Allergies/Adverse Reactions: Allergies Allergy/AdvReac Type Severity Reaction Status Date / Time amoxicillin Allergy Anaphylaxis Verified 01/24/21 14:19 - Social History Does the pt smoke?: Yes Smoking Status: Current every day smoker Does the pt drink ETOH?: No Does the pt have substance abuse?: No - Immunizations Immunizations are current?: Yes - POLST Patient has POLST: No PD ED PE NORMAL - Vitals Vital signs reviewed: Yes - General General: Alert and oriented X 3, Other (appears uncomfortable) - HEENT HEENT: Moist mucous membranes - Neck Neck: Supple, no meningeal sign - Cardiac Cardiac: RRR - Respiratory Respiratory: No respiratory distress, Clear bilaterally - Abdomen Abdomen: Soft, Non distended, Other (TTP suprapubic) - Back Back: No CVA TTP, No spinal TTP - Derm Derm: Warm and dry - Extremities Extremities: No edema - Neuro Neuro: Alert and oriented X 3 Results - Vitals Vitals: Vital Signs - 24 hr 01/24/21 01/24/21 14:08 15:56 Temperature 36.3 C L 36.4 C L Heart Rate 66 70 Respiratory 15 16 Rate Blood Pressure 118/74 131/81 H O2 Saturation 100 100 Oxygen O2 Source Room air - Labs Labs: Laboratory Tests 01/24/21 14:15 Urine Color YELLOW Urine Clarity CLEAR Urine pH 6.0 Ur Specific [place] 1.020 Urine Protein 100 H Urine Glucose (UA) NEGATIVE Urine Ketones NEGATIVE Urine Occult Blood SMALL H Urine Nitrite NEGATIVE Urine Bilirubin NEGATIVE Urine Urobilinogen 0.2 (NORMAL) Ur Leukocyte Esterase NEGATIVE Urine RBC 0-5 Urine WBC 0-3 Ur Squamous Epith Cells FEW Squamous Urine Bacteria Rare Urine Mucus Few Strands Ur Microscopic Review INDICATED Urine Culture Comments NOT INDICATED PD MEDICAL DECISION MAKING - ED course Complexity details: reviewed results, re-evaluated patient, considered differential, d/w patient ED course: 81-year-old male with acute urinary retention. A Luciano catheter was placed. 14 [place] coud catheter with a balloon. Bladder drained. Patient feels much better. Over 500 cc drained immediately. A leg bag will be placed. We will have him follow-up with his urologist for further care. Patient will continue with ciprofloxacin at home for prostatitis. Patient counseled regarding signs and symptoms for which I believe and urgent re-evaluation would be necessary. Patient with good understanding of and agreement to plan and is comfortable going home at this time This document was made in part using voice recognition software. While efforts are made to proofread this document, sound alike and grammatical errors may occur. Patient also recently increased his Flomax to twice a day, we will have him decrease this back to once a day. Departure - Departure Disposition: 01 Home, Self Care Clinical Impression: Urinary retention Condition: Good Instructions: ED Catheter Care Mustapha, VASQUEZ Retention Urinary Male Follow-Up: TATA LUCIA PA-C [Primary Care Provider] - Within 1 week Comments: You should call your urologist on Monday to see if they can see you this week. Leave the catheter in place until cleared by your urologist. Take all antibiotics until gone. Continue your ciprofloxacin at home. Return if you worsen. Discharge Date/Time: 01/24/21 15:59
[2021-01-24 15:56] VITALS: BP 131/81
== END 2021-01-24 15:59 | disposition home or self-care (01) ==
LOC: ED 14:03
DX: N40.1 Benign prostatic hyperplasia with lower urinary tract symptoms (principal); R33.8 Other retention of urine; N41.9 Inflammatory disease of prostate, unspecified; Z85.46 Personal history of malignant neoplasm of prostate; F17.200 Nicotine dependence, unspecified, uncomplicated
CPT/HCPCS: 51702; 51798; 81001; 81003; 87086; 99283

== ENCOUNTER 2021-02-04 06:47 | Emergency (ER) | payer MEDICARE, OTHER ==
--- NOTE | 2021-02-04 07:06 | ED Physician Documentation ---
PD HPI MALE - Stated complaint Stated Complaint: MALE - Chief complaint Chief Complaint: Abd Pain - History obtained from History obtained from: Patient - History of Present Illness Timing - onset: Today (awoke this morning with blood from around the orantes catheter at penile meatus. Having some cramping feeling in bladder.) Timing - details: Abrupt onset Associated symptoms: Hematuria, Orantes problem (dark urine for few days, and today seems like not draining well.) PD HPI MALE CONTRIB FACTORS: Indwelling catheter (for past 2-3 weeks, with Urology appt next week.) Review of Systems Constitutional: denies: Fever, Chills GI: denies: Nausea, Vomiting : reports: Hematuria, Orantes Problem PD PAST MEDICAL HISTORY - Past Medical History Respiratory: COPD : Benign prostate hypertrophy - Past Surgical History Past Surgical History: Yes HEENT: Cataracts - Present Medications Home Medications: Ambulatory Orders Medication Instructions Recorded Confirmed B12 Injection 1 INJ ONCE 07/23/18 Cefdinir 300 mg PO BID #20 capsule 03/27/20 02/04/21 Sulfamethox/Trimeth 800/160 1 each PO BID #14 tablet 02/04/21 [Bactrim Ds 800/160] Tamsulosin HCl [Flomax] 0.4 mg PO DAILY 02/04/21 02/04/21 - Allergies Allergies/Adverse Reactions: Allergies Allergy/AdvReac Type Severity Reaction Status Date / Time amoxicillin Allergy Anaphylaxis Verified 02/04/21 07:03 - Social History Does the pt smoke?: Yes Smoking Status: Current every day smoker Does the pt drink ETOH?: No Does the pt have substance abuse?: No - Immunizations Immunizations are current?: Yes - POLST Patient has POLST: No PD ED PE NORMAL - Vitals Vital signs reviewed: Yes - General General: Alert and oriented X 3, Well developed/nourished - Abdomen Abdomen: Soft, Non tender - Male Male : Other (orantes in place with dark urine out, appearing some older blood. Minimal clots. Bladder scan showing 147 ml, which seems a bit high. ) - Back Back: No CVA TTP - Derm Derm: Normal color, Warm and dry Results - Vitals Vitals: Vital Signs - 24 hr 02/04/21 02/04/21 06:59 10:20 Temperature 36.7 C Heart Rate 85 76 Respiratory 18 16 Rate Blood Pressure 129/79 166/90 H O2 Saturation 98 96 Oxygen O2 Source Room air - Labs Labs: Laboratory Tests 02/04/21 02/04/21 02/04/21 07:37 07:37 09:36 WBC 4.2 L RBC 3.96 L Hgb 12.8 L Hct 38.3 L MCV 96.7 H MCH 32.3 H MCHC 33.4 RDW 12.9 Plt Count 198 MPV 9.6 Neut # (Auto) 2.5 Lymph # (Auto) 0.8 L [place] # (Auto) 0.5 Eos # (Auto) 0.4 Baso # (Auto) 0.0 Absolute Nucleated RBC 0.00 Nucleated RBC % 0.0 Sodium 140 Potassium 4.3 Chloride 107 Carbon Dioxide 28 Anion Gap 5.0 L BUN 24 H Creatinine 0.9 Estimated GFR (MDRD) 81 L Glucose 107 H Calcium 8.8 Urine Color RED/BLOODY Urine Clarity BLOODY Urine pH 7.0 Ur Specific [place] 1.025 Urine Protein >=300 H Urine Glucose (UA) NEGATIVE Urine Ketones NEGATIVE Urine Occult Blood LARGE H Urine Nitrite POSITIVE H Urine Bilirubin NEGATIVE Urine Urobilinogen 2 H Ur Leukocyte Esterase TRACE H Urine RBC TNTC H Urine WBC 4-5 Ur Squamous Epith Cells RARE Squamous Amorphous Sediment Rare Urine Bacteria Few Urine Mucus Few Strands Ur Microscopic Review INDICATED Urine Culture Comments INDICATED PD MEDICAL DECISION MAKING - ED course Complexity details: reviewed results (UA c/w infection and he does have some bladder discomfort and hematuria, so reasonable c/w infection rather than contamination. ), re-evaluated patient (nursing irrigated the orantes and got some clots out, and urine coming out clearer. ), considered differential, d/w patient Departure - Departure Disposition: 01 Home, Self Care Clinical Impression: Hematuria Qualifiers: Hematuria type: unspecified type Qualified Code(s): R31.9 - Hematuria, unspecified Orantes catheter problem Qualifiers: Encounter type: initial encounter Qualified Code(s): T83.9XXA - Unspecified complication of genitourinary prosthetic device, implant and graft, initial encounter UTI (urinary tract infection) Qualifiers: Urinary tract infection type: catheter-associated UTI Indwelling urinary catheter type: indwelling urethral catheter Encounter type: initial encounter Qualified Code(s): T83.511A - Infection and inflammatory reaction due to indwelling urethral catheter, initial encounter Instructions: ED UTI Cystitis Male Follow-Up: TATA LUCIA PA-C [Primary Care Provider] - Prescriptions: Sulfamethox/Trimeth 800/160 [Bactrim Ds 800/160] 1 each PO BID #14 tablet Comments: The bleeding in the urine and around the catheter may relate to just an irritation of the bladder opening from the catheter. However the urine sample is more suggestive of an acute infection as well. This can cause irritation and bleeding 2. The culture of this should result in a couple of days to better define the type of infection. For now we will start with Bactrim antibiotic twice daily for the next week. Will call if we need to change or modify the antibiotic choice. You would recently been on the Cipro for prostate infection. However this looks to be more bladder in likely a different process now and therefore I picked a different antibiotic. Notify your urologist later today or tomorrow. Follow-up with him next week as planned. Discharge Date/Time: 02/04/21 10:35
[2021-02-04] MEDS ORDERED: PHENAZOPYRIDINE 100 MG TABLET PO STA (07:17)
[2021-02-04 07:52] LABS: BASOPHILS % (AUTO) 0.9 %; EOSINOPHILS # (AUTO) 0.4 10^3/uL (0.0-0.7); EOSINOPHILS % (AUTO) 9.2 %; HCT - HEMATOCRIT 38.3 % (42.0-52.0); HGB - HEMOGLOBIN 12.8 g/dL (14.0-18.0); LYMPHOCYTES # (AUTO) 0.8 10^3/uL (1.5-3.5); LYMPHOCYTES % (AUTO) 19.3 %; MEAN CORPUSCULAR HEMOGLOBIN 32.3 pg (27.0-31.0); MEAN CORPUSCULAR HGB CONC 33.4 g/dL (32.0-36.0); MEAN CORPUSCULAR VOLUME 96.7 fL (80.0-94.0); MEAN PLATELET VOLUME 9.6 fL (7.4-11.4); MONOCYTES # (AUTO) 0.5 10^3/uL (0.0-1.0); MONOCYTES % (AUTO) 12.3 %; NEUTROPHILS # (AUTO) 2.5 10^3/uL (1.5-6.6); NEUTROPHILS % (AUTO) 58.1 %; PLT - PLATELET COUNT 198 10^3/uL (130-450); RED BLOOD COUNT 3.96 10^6/uL (4.70-6.10); RED CELL DISTRIBUTION WIDTH 12.9 % (12.0-15.0); WHITE BLOOD COUNT 4.2 x10^3/uL (4.8-10.8)
[2021-02-04 08:02] LABS: CALCIUM 8.8 mg/dL (8.5-10.3); CREATININE 0.9 mg/dL (0.6-1.2); POTASSIUM 4.3 mmol/L (3.5-5.0)
[2021-02-04 09:57] LABS: BILIRUBIN,URINE NEGATIVE (NEGATIVE); GLUCOSE, URINE (UA) NEGATIVE (NEGATIVE); KETONES,URINE (UA) NEGATIVE (NEGATIVE); LEUKOCYTE ESTERASE, URINE TRACE (NEGATIVE); NITRITE,URINE POSITIVE (NEGATIVE); OCCULT BLOOD,URINE LARGE (NEGATIVE); PROTEIN,URINE >=300 mg/dL (NEGATIVE); UROBILINOGEN,URINE 2 E.U./dL (NORMAL)
[2021-02-04 09:59] LABS: AMORPHOUS SEDIMENT,UR Rare /LPF; BACTERIA,URINE Few /HPF (None Seen); CLARITY,URINE BLOODY (CLEAR); MUCUS,URINE Few Strands; RBC,URINE TNTC /HPF (0-5); SQUAMOUS EPITHELIAL CELL,UR RARE Squamous (<= Few)
[2021-02-04] MEDS ORDERED: SULFAMETH/TRIMETH DS 800/160 MG TABLET PO STA (10:04)
[2021-02-04 11:24] VITALS: BP 166/90
== END 2021-02-04 10:35 | disposition home or self-care (01) ==
LOC: ED 06:47
DX: T83.511A Infection and inflammatory reaction due to indwelling urethral catheter, initial encounter (principal); R31.9 Hematuria, unspecified; N39.0 Urinary tract infection, site not specified; F17.200 Nicotine dependence, unspecified, uncomplicated
CPT/HCPCS: 36415; 51700; 51798; 80048; 81001; 85025; 87077; 87086; 87181; 99283; 99284; A9270; 81003

== ENCOUNTER 2021-04-06 14:30 | Outpatient (CLI) | payer MEDICARE, OTHER ==
[2021-04-06 19:51] LABS: BILIRUBIN,URINE NEGATIVE (NEGATIVE); GLUCOSE, URINE (UA) NEGATIVE (NEGATIVE); KETONES,URINE (UA) NEGATIVE (NEGATIVE); LEUKOCYTE ESTERASE, URINE TRACE (NEGATIVE); NITRITE,URINE NEGATIVE (NEGATIVE); OCCULT BLOOD,URINE LARGE (NEGATIVE); PH,URINE 6.5 PH (5.0-7.5); PROTEIN,URINE 100 mg/dL (NEGATIVE); UROBILINOGEN,URINE 0.2 (NORMAL) E.U./dL (NORMAL)
[2021-04-06 19:58] LABS: BACTERIA,URINE Few /HPF (None Seen); CLARITY,URINE CLOUDY (CLEAR); RBC,URINE TNTC /HPF (0-5); SQUAMOUS EPITHELIAL CELL,UR RARE Squamous (<= Few)
== END 2021-04-06 14:31 | disposition home or self-care (01) ==
LOC: LAB.S 14:30
PROVIDERS: ATTEND Urology
DX: R31.9 Hematuria, unspecified (principal)
CPT/HCPCS: 81001; 87077; 87086; 87181

== ENCOUNTER 2021-04-20 13:33 | Outpatient (CLI) | payer MEDICARE, OTHER | END 2021-04-20 13:34 | disposition home or self-care (01) | LOC: LAB.S 13:33 | PROVIDERS: ATTEND Specialist | DX: C61 Malignant neoplasm of prostate (principal); D47.2 Monoclonal gammopathy | CPT/HCPCS: 36415; 84153 ==

== ENCOUNTER 2021-04-28 10:23 | Outpatient (CLI) | payer MEDICARE, OTHER ==
[2021-04-28 14:51] LABS: PARTIAL THROMBOPLASTIN TIME 25.8 secs (24.9-33.3)
[2021-04-28 15:09] LABS: BASOPHILS % (AUTO) 0.8 %; EOSINOPHILS # (AUTO) 0.2 10^3/uL (0.0-0.7); EOSINOPHILS % (AUTO) 3.9 %; HCT - HEMATOCRIT 41.3 % (42.0-52.0); LYMPHOCYTES # (AUTO) 1.3 10^3/uL (1.5-3.5); LYMPHOCYTES % (AUTO) 25.8 %; MEAN CORPUSCULAR HEMOGLOBIN 31.2 pg (27.0-31.0); MEAN CORPUSCULAR HGB CONC 31.5 g/dL (32.0-36.0); MEAN PLATELET VOLUME 9.6 fL (7.4-11.4); MONOCYTES # (AUTO) 0.6 10^3/uL (0.0-1.0); NEUTROPHILS # (AUTO) 2.8 10^3/uL (1.5-6.6); NEUTROPHILS % (AUTO) 57.3 %; PLT - PLATELET COUNT 279 10^3/uL (130-450); RED BLOOD COUNT 4.17 10^6/uL (4.70-6.10); RED CELL DISTRIBUTION WIDTH 13.3 % (12.0-15.0); WHITE BLOOD COUNT 4.9 x10^3/uL (4.8-10.8)
[2021-04-28 15:47] LABS: PT - PROTHROMBIN TIME 10.8 secs (9.9-12.6)
== END 2021-04-28 10:24 | disposition home or self-care (01) ==
LOC: LAB.S 10:23
PROVIDERS: ATTEND Specialist
DX: C61 Malignant neoplasm of prostate (principal); D47.2 Monoclonal gammopathy
CPT/HCPCS: 36415; 85025; 85610; 85730

== ENCOUNTER 2021-05-21 10:43 | Outpatient (CLI) | payer MEDICARE, OTHER ==
[2021-05-21 14:46] LABS: BASOPHILS # (AUTO) 0.1 10^3/uL (0.0-0.1); BASOPHILS % (AUTO) 1.3 %; EOSINOPHILS # (AUTO) 0.2 10^3/uL (0.0-0.7); EOSINOPHILS % (AUTO) 3.3 %; HCT - HEMATOCRIT 40.7 % (42.0-52.0); LYMPHOCYTES # (AUTO) 1.2 10^3/uL (1.5-3.5); LYMPHOCYTES % (AUTO) 25.3 %; MEAN CORPUSCULAR HEMOGLOBIN 31.1 pg (27.0-31.0); MEAN CORPUSCULAR HGB CONC 31.9 g/dL (32.0-36.0); MEAN CORPUSCULAR VOLUME 97.4 fL (80.0-94.0); MEAN PLATELET VOLUME 9.6 fL (7.4-11.4); MONOCYTES # (AUTO) 0.6 10^3/uL (0.0-1.0); MONOCYTES % (AUTO) 12.1 %; NEUTROPHILS # (AUTO) 2.6 10^3/uL (1.5-6.6); NEUTROPHILS % (AUTO) 57.8 %; PLT - PLATELET COUNT 274 10^3/uL (130-450); RED BLOOD COUNT 4.18 10^6/uL (4.70-6.10); RED CELL DISTRIBUTION WIDTH 13.3 % (12.0-15.0); WHITE BLOOD COUNT 4.5 x10^3/uL (4.8-10.8)
[2021-05-21 15:17] LABS: ALBUMIN 3.2 g/dL (3.2-5.5); ALBUMIN/GLOBULIN RATIO 1.2 (1.0-2.2); ALKALINE PHOSPHATASE 54 IU/L (42-121); ALT ALANINE AMINOTRANSFERASE 15 IU/L (10-60); AST ASPARTATE AMINOTRANSFERASE 20 IU/L (10-42); BILIRUBIN,TOTAL 1.2 mg/dL (0.2-1.0); BUN - BLOOD UREA NITROGEN 28 mg/dL (6-20); CALCIUM 9.4 mg/dL (8.5-10.3); CARBON DIOXIDE - CO2 28 mmol/L (21-32); CHLORIDE 102 mmol/L (101-111); CHOL/HDL RATIO 2.8 (<5.0); CHOLESTEROL 229 mg/dL; CREATININE 0.9 mg/dL (0.6-1.2); GFR - MDRD 81 (>89); GLUCOSE 98 mg/dL (70-100); HDL CHOLESTEROL 81 mg/dL; LDL CHOLESTEROL,CALCULATED 137 mg/dL; LDL/HDL RATIO 1.7 (<3.6); POTASSIUM 4.2 mmol/L (3.5-5.0); SODIUM 139 mmol/L (135-145); TOTAL PROTEIN 5.8 g/dL (6.7-8.2); TRIGLYCERIDES 54 mg/dL; VLDL CHOLESTEROL 11 mg/dL
== END 2021-05-21 10:44 | disposition home or self-care (01) ==
LOC: LAB.S 10:43
PROVIDERS: ATTEND Internal Medicine
DX: Z13.220 Encounter for screening for lipoid disorders (principal); Z79.899 Other long term (current) drug therapy
CPT/HCPCS: 36415; 80053; 80061; 83721; 85025

== ENCOUNTER 2021-10-15 11:08 | Outpatient (CLI) | payer MEDICARE, OTHER | END 2021-10-15 11:09 | disposition home or self-care (01) | LOC: LAB.S 11:08 | PROVIDERS: ATTEND Specialist | DX: C61 Malignant neoplasm of prostate (principal); D47.2 Monoclonal gammopathy | CPT/HCPCS: 36415; 84153 ==

== ENCOUNTER 2021-11-03 11:20 | Outpatient (CLI) | payer MEDICARE, OTHER ==
[2021-11-03 15:39] LABS: ALBUMIN 2.9 g/dL (3.2-5.5); ALBUMIN/GLOBULIN RATIO 1.1 (1.0-2.2); ALKALINE PHOSPHATASE 53 IU/L (42-121); ALT ALANINE AMINOTRANSFERASE 15 IU/L (10-60); AST ASPARTATE AMINOTRANSFERASE 20 IU/L (10-42); BILIRUBIN,TOTAL 0.8 mg/dL (0.2-1.0); BUN - BLOOD UREA NITROGEN 20 mg/dL (6-20); CALCIUM 8.8 mg/dL (8.5-10.3); CARBON DIOXIDE - CO2 27 mmol/L (21-32); CHLORIDE 102 mmol/L (101-111); CHOL/HDL RATIO 2.8 (<5.0); CHOLESTEROL 205 mg/dL; CREATININE 0.9 mg/dL (0.6-1.2); GFR - MDRD 81 (>89); GLUCOSE 92 mg/dL (70-100); HDL CHOLESTEROL 72 mg/dL; LDL CHOLESTEROL,CALCULATED 123 mg/dL; LDL/HDL RATIO 1.7 (<3.6); POTASSIUM 4.4 mmol/L (3.5-5.0); SODIUM 134 mmol/L (135-145); TOTAL PROTEIN 5.5 g/dL (6.7-8.2); TRIGLYCERIDES 48 mg/dL; VLDL CHOLESTEROL 10 mg/dL
== END 2021-11-03 11:21 | disposition home or self-care (01) ==
LOC: LAB.S 11:20
PROVIDERS: ATTEND Internal Medicine
DX: Z13.220 Encounter for screening for lipoid disorders (principal); Z79.899 Other long term (current) drug therapy
CPT/HCPCS: 36415; 80053; 80061; 83721

== ENCOUNTER 2022-02-07 15:41 | Emergency (ER) | payer MEDICARE, OTHER ==
[2022-02-07 15:49] VITALS: BP 152/76
--- NOTE | 2022-02-07 15:59 | ED Physician Documentation ---
History of Present Illness - Stated complaint Stated Complaint: LT HIP PX - Chief complaint Chief Complaint: Back Pain - History obtained from History obtained from: Patient - Additonal information Additional information: 82-year-old gentleman with history of bilateral leg weakness of several years duration of unknown etiology was working around the house 2 days ago and pulled his back and complains of left low back pain. He was seen at the walk-in clinic where other history was elucidated including about a 20 pound weight loss over the last 6 months and history of prostate cancer albeit with persistently negative PSAs recently and he was sent here for imaging as they did not have that capability. Review of Systems Constitutional: denies: Fever, Chills Ears: reports: Reviewed and negative Nose: reports: Reviewed and negative Throat: reports: Reviewed and negative Cardiac: reports: Reviewed and negative Respiratory: reports: Reviewed and negative PD PAST MEDICAL HISTORY - Past Medical History Respiratory: COPD : Benign prostate hypertrophy - Past Surgical History Past Surgical History: Yes HEENT: Cataracts - Present Medications Home Medications: Ambulatory Orders Medication Instructions Recorded Confirmed B12 Injection 1 INJ ONCE 07/23/18 Cefdinir 300 mg PO BID #20 capsule 03/27/20 02/04/21 Sulfamethox/Trimeth 800/160 1 each PO BID #14 tablet 02/04/21 [Bactrim Ds 800/160] Tamsulosin HCl [Flomax] 0.4 mg PO DAILY 02/04/21 02/04/21 Cyclobenzaprine [Flexeril] 10 mg PO TID PRN #20 tablet 02/07/22 - Allergies Allergies/Adverse Reactions: Allergies Allergy/AdvReac Type Severity Reaction Status Date / Time amoxicillin Allergy Anaphylaxis Verified 02/07/22 15:48 - Social History Does the pt smoke?: Yes Smoking Status: Current every day smoker Does the pt drink ETOH?: No Does the pt have substance abuse?: No - Immunizations Immunizations are current?: Yes - POLST Patient has POLST: No PD ED PE NORMAL - Vitals Vital signs reviewed: Yes - General General: Alert and oriented X 3, No acute distress - HEENT HEENT: PERRL, EOMI - Neck Neck: Supple, no meningeal sign, No bony TTP - Abdomen Abdomen: Normal bowel sounds, Soft, Non tender - Extremities Extremities: Other (He winces with motion but I am unable to recreate the back pain with palpation of any area of the low back or spine. He points to the left low back as the site of pain, not his hip as stated in the chief complaint.) - Neuro Neuro: Alert and oriented X 3, Normal speech, Other (The patient has equal and normal Achilles and patellar reflexes bilaterally. Normal sensation in all areas of the legs. Patient denies saddle anesthesia. Normal strength in flexion-extension at the ankles, knees, and flexion of the hips.) Results - Vitals Vitals: Vital Signs - 24 hr 02/07/22 15:45 Temperature 36.8 C Heart Rate 66 Respiratory 14 Rate Blood Pressure 152/76 H O2 Saturation 95 Oxygen O2 Source Room air - Labs Labs: Laboratory Tests 02/07/22 02/07/22 16:08 16:08 WBC 5.2 RBC 4.22 L Hgb 13.6 L Hct 40.4 L MCV 95.7 H MCH 32.2 H MCHC 33.7 RDW 12.9 Plt Count 253 MPV 9.2 Neut # (Auto) 2.9 Lymph # (Auto) 1.3 L [place] # (Auto) 0.6 Eos # (Auto) 0.3 Baso # (Auto) 0.0 Absolute Nucleated RBC 0.00 Nucleated RBC % 0.0 Sodium 136 Potassium 4.2 Chloride 104 Carbon Dioxide 24 Anion Gap 8.0 BUN 29 H Creatinine 0.9 Estimated GFR (MDRD) 81 L Glucose 99 Calcium 9.0 Total Bilirubin 0.9 AST 23 ALT 17 Alkaline Phosphatase 51 Total Protein 5.8 L Albumin 3.1 L Globulin 2.7 Albumin/Globulin Ratio 1.1 PD MEDICAL DECISION MAKING - ED course ED course: 82-year-old gentleman with history of prostate cancer with back injury. Seems muscular, but given his age and comorbidities imaging labs were done without pertinent positive findings. He did have diverticula on his CT which she was aware of. Departure - Departure Disposition: 01 Home, Self Care Clinical Impression: Back pain Condition: Good Record reviewed to determine appropriate education?: Yes Instructions: ED Low Back Pain Injury Prescriptions: Cyclobenzaprine [Flexeril] 10 mg PO TID PRN #20 tablet PRN Reason: Spasms Comments: You can continue ibuprofen as needed for pain, add the muscle relaxer as needed. Do not drink or drive while taking muscle laxer. Return for new or worsening symptoms. Follow-up with your doctor at the end of the week if not improving.
[2022-02-07 16:21] LABS: BASOPHILS % (AUTO) 0.8 %; EOSINOPHILS # (AUTO) 0.3 10^3/uL (0.0-0.7); HCT - HEMATOCRIT 40.4 % (42.0-52.0); HGB - HEMOGLOBIN 13.6 g/dL (14.0-18.0); LYMPHOCYTES # (AUTO) 1.3 10^3/uL (1.5-3.5); LYMPHOCYTES % (AUTO) 25.2 %; MEAN CORPUSCULAR HEMOGLOBIN 32.2 pg (27.0-31.0); MEAN CORPUSCULAR HGB CONC 33.7 g/dL (32.0-36.0); MEAN CORPUSCULAR VOLUME 95.7 fL (80.0-94.0); MEAN PLATELET VOLUME 9.2 fL (7.4-11.4); MONOCYTES # (AUTO) 0.6 10^3/uL (0.0-1.0); MONOCYTES % (AUTO) 11.8 %; NEUTROPHILS # (AUTO) 2.9 10^3/uL (1.5-6.6); PLT - PLATELET COUNT 253 10^3/uL (130-450); RED BLOOD COUNT 4.22 10^6/uL (4.70-6.10); RED CELL DISTRIBUTION WIDTH 12.9 % (12.0-15.0); WHITE BLOOD COUNT 5.2 x10^3/uL (4.8-10.8)
[2022-02-07 16:30] LABS: ALBUMIN 3.1 g/dL (3.2-5.5); ALBUMIN/GLOBULIN RATIO 1.1 (1.0-2.2); BILIRUBIN,TOTAL 0.9 mg/dL (0.2-1.0); CREATININE 0.9 mg/dL (0.6-1.2); POTASSIUM 4.2 mmol/L (3.5-5.0); TOTAL PROTEIN 5.8 g/dL (6.7-8.2)
--- NOTE | 2022-02-07 17:23 | CT Report ---
PROCEDURE: Abdomen/Pelvis WO INDICATIONS: back injury, weight loss TECHNIQUE: Noncontrast 5 mm thick sections acquired from the diaphragms to the symphysis. 5 mm coronal and sagi ttal reformats were then performed. For radiation dose reduction, the following was used: automated exposure control, adjustment of mA and/or kV according to patient size. COMPARISON: CT abdomen/pelvis 03/27/2020 FINDINGS: Image quality: Excellent. ABDOMEN: Lung bases: Lung bases are clear. Heart size is normal. Solid organs: Liver and spleen are normal in size. Gallbladder is unremarkable. Pancreas is normal in contours. No adrenal nodules. Kidneys are normal in size, without hydronephrosis or nephrolithi asis. Peritoneum and bowel: Unenhanced bowel loops demonstrate normal wall thickness and caliber. No free fluid. Significant colonic diverticula are present increased compared to prior exam. There is no vis ualized inflammatory change. Mild to moderate scattered stool. Nodes and vessels: No retroperitoneal or mesenteric adenopathy by size criteria. Aorta and inferior vena cava are normal in caliber. Miscellaneous: No ventral hernias. PELVIS: Genitourinary: Bladder wall thickness is normal. Miscellaneous: No inguinal hernias or adenopathy. Bones: No suspicious bony lesions. No vertebral body compression fractures. IMPRESSION: Extensive colonic diverticula without inflammatory change. Mild to moderate scattered stool. Reviewed by: Sara Cervantes MD on 02/07/2022 5:21 PM PDT Approved by: Sara Cervantes MD on 02/07/2022 5:21 PM PDT Station ID: [id number]
== END 2022-02-07 17:55 | disposition home or self-care (01) ==
LOC: ED 15:41
DX: M54.50 Low back pain, unspecified (principal); F17.200 Nicotine dependence, unspecified, uncomplicated
CPT/HCPCS: 36415; 80053; 85025; 99283; 99284

== ENCOUNTER 2022-02-12 13:04 | Emergency (ER) | payer MEDICARE, OTHER ==
[2022-02-12] MEDS ORDERED: KETOROLAC 60 MG/2 ML VIAL IM STA (13:46)
--- NOTE | 2022-02-12 13:57 | ED Physician Documentation ---
History of Present Illness - Stated complaint Stated Complaint: LT HIP PAIN - Chief complaint Chief Complaint: Ext Problem - History obtained from History obtained from: Patient - History of Present Illness Timing: How many weeks ago (1) Pain level max: 8 Pain level now: 5 - Additonal information Additional information: Patient is an 82-year-old male who presents to the emergency department with left lower back pain. It started about a week ago after he was pulling a bag of cement along the ground when he twisted, tripped and fell. Worse with movement, standing and walking. He had a CT scan several days ago which did not show any acute bony abnormalities. No fractures. He complains of pain radiating down the left hip down to the left knee. He occasionally will use a cane to help him walk. Has never used a walker. Worse with standing, movement, better with rest. Took muscle relaxers without relief. No loss of bowel or bladder control. Occasional mild numbness to the left leg. Review of Systems Constitutional: denies: Fever, Chills GI: denies: Vomiting, Diarrhea Skin: denies: Rash Musculoskeletal: denies: Neck pain Neurologic: denies: Headache PD PAST MEDICAL HISTORY - Past Medical History Past Medical History: Yes Respiratory: COPD, Sleep apnea, CPAP use : Benign prostate hypertrophy Other Past Medical History: prostate cancer, last tx Jul 2019. umbilical hernia - Past Surgical History Past Surgical History: Yes HEENT: Cataracts - Present Medications Home Medications: Ambulatory Orders Medication Instructions Recorded Confirmed B12 Injection 1 INJ ONCE 07/23/18 Cefdinir 300 mg PO BID #20 capsule 03/27/20 02/04/21 Sulfamethox/Trimeth 800/160 1 each PO BID #14 tablet 02/04/21 [Bactrim Ds 800/160] Tamsulosin HCl [Flomax] 0.4 mg PO DAILY 02/04/21 02/04/21 Cyclobenzaprine [Flexeril] 10 mg PO TID PRN #20 tablet 02/07/22 Meloxicam [Mobic] 7.5 mg PO BID PRN #20 tablet 02/12/22 - Allergies Allergies/Adverse Reactions: Allergies Allergy/AdvReac Type Severity Reaction Status Date / Time amoxicillin Allergy Anaphylaxis Verified 02/07/22 15:48 - Social History Does the pt smoke?: Yes Smoking Status: Current every day smoker Does the pt drink ETOH?: No Does the pt have substance abuse?: No - Immunizations Immunizations are current?: Yes - POLST Patient has POLST: No PD ED PE NORMAL - Vitals Vital signs reviewed: Yes - General General: Alert and oriented X 3, No acute distress - HEENT HEENT: PERRL, Moist mucous membranes - Neck Neck: Supple, no meningeal sign - Cardiac Cardiac: RRR, Strong equal pulses - Respiratory Respiratory: No respiratory distress, Clear bilaterally - Abdomen Abdomen: Soft, Non tender, Non distended - Back Back: No spinal TTP - Derm Derm: Warm and dry - Extremities Extremities: Other (No tenderness over the left hip. Tender to palpation over the left SI joint. Pain with internal rotation of the hip. No pain with external rotation. There is pain with flexion of the hip, he feels this in the SI joint as well. Neurovascular intact.) - Neuro Neuro: Alert and oriented X 3, No motor deficit, No sensory deficit, Other (Normal bilateral lower extremity patellar and ankle jerk reflexes. Normal great toe extension bilaterally. no saddle anesthesia) - Psych Psych: Normal mood, Normal affect Results - Vitals Vitals: Vital Signs - 24 hr 02/12/22 02/12/22 13:18 14:45 Temperature 36.8 C 36.8 C Heart Rate 70 70 Respiratory 16 16 Rate Blood Pressure 190/101 H 190/90 H O2 Saturation 99 99 Oxygen O2 Source Room air PD MEDICAL DECISION MAKING - ED course Complexity details: reviewed old records, re-evaluated patient, considered differential, d/w patient ED course: 82-year-old male with what appears to be a sprain of his left SI joint. Feels much better after Toradol. Given a walker and is ambulating well. Reviewed old records and prior CT. We will continue supportive care at home and have him follow-up with his doctor. May benefit from physical therapy as this heals. Patient counseled regarding signs and symptoms for which I believe and urgent re-evaluation would be necessary. Patient with good understanding of and agreement to plan and is comfortable going home at this time This document was made in part using voice recognition software. While efforts are made to proofread this document, sound alike and grammatical errors may occur. Departure - Departure Disposition: 01 Home, Self Care Clinical Impression: Sprain of sacroiliac joint, initial encounter Condition: Good Instructions: Sacroiliac Strain, Sacroiliac Strain Exercise Follow-Up: Viktor Perry MD [Primary Care Provider] - Prescriptions: Meloxicam [Mobic] 7.5 mg PO BID PRN #20 tablet PRN Reason: Pain Comments: You have a sprain/strain of your sacroiliac joint. This can take 4 to 6 weeks to fully heal. A walker will help to take some of the weight off of your pelvis as you walk. This will help your pain and your healing. Your doctor may want to refer you to physical therapy. I have attached stretches and exercises to help strengthen the area. Return if you worsen. [facility] was sent to [facility] in [place]. Discharge Date/Time: 02/12/22 14:49
[2022-02-12 14:47] VITALS: BP 190/90
== END 2022-02-12 14:49 | disposition home or self-care (01) ==
LOC: ED 13:04
DX: S33.6XXA Sprain of sacroiliac joint, initial encounter (principal); X58.XXXA Exposure to other specified factors, initial encounter; F17.200 Nicotine dependence, unspecified, uncomplicated
CPT/HCPCS: 96372; 99282; 99283

== ENCOUNTER 2022-02-19 15:47 | Outpatient (CLI) | payer MEDICARE, OTHER ==
[2022-02-19 16:10] LABS: BASOPHILS % (AUTO) 0.6 %; EOSINOPHILS # (AUTO) 0.2 10^3/uL (0.0-0.7); EOSINOPHILS % (AUTO) 4.9 %; HCT - HEMATOCRIT 39.9 % (42.0-52.0); HGB - HEMOGLOBIN 13.5 g/dL (14.0-18.0); LYMPHOCYTES # (AUTO) 1.3 10^3/uL (1.5-3.5); LYMPHOCYTES % (AUTO) 25.5 %; MEAN CORPUSCULAR HEMOGLOBIN 31.9 pg (27.0-31.0); MEAN CORPUSCULAR HGB CONC 33.8 g/dL (32.0-36.0); MEAN CORPUSCULAR VOLUME 94.3 fL (80.0-94.0); MEAN PLATELET VOLUME 8.9 fL (7.4-11.4); MONOCYTES # (AUTO) 0.6 10^3/uL (0.0-1.0); MONOCYTES % (AUTO) 12.7 %; NEUTROPHILS # (AUTO) 2.8 10^3/uL (1.5-6.6); NEUTROPHILS % (AUTO) 56.1 %; PLT - PLATELET COUNT 280 10^3/uL (130-450); RED BLOOD COUNT 4.23 10^6/uL (4.70-6.10); RED CELL DISTRIBUTION WIDTH 12.4 % (12.0-15.0); WHITE BLOOD COUNT 4.9 x10^3/uL (4.8-10.8)
[2022-02-19 16:31] LABS: PT - PROTHROMBIN TIME 11.4 secs (9.9-12.6)
[2022-02-19 16:35] LABS: ALBUMIN 2.9 g/dL (3.2-5.5); ALKALINE PHOSPHATASE 58 IU/L (42-121); ALT ALANINE AMINOTRANSFERASE 19 IU/L (10-60); AST ASPARTATE AMINOTRANSFERASE 23 IU/L (10-42); BILIRUBIN,TOTAL 0.8 mg/dL (0.2-1.0); BUN - BLOOD UREA NITROGEN 24 mg/dL (6-20); CALCIUM 9.1 mg/dL (8.5-10.3); CARBON DIOXIDE - CO2 28 mmol/L (21-32); CHLORIDE 102 mmol/L (101-111); CREATININE 0.8 mg/dL (0.6-1.2); GFR - MDRD 93 (>89); GLUCOSE 120 mg/dL (70-100); POTASSIUM 4.6 mmol/L (3.5-5.0); SODIUM 136 mmol/L (135-145); TOTAL PROTEIN 5.9 g/dL (6.7-8.2)
[2022-02-19 17:44] LABS: CRP - C-REACTIVE PROTEIN < 1.0 mg/dL (0-1.0)
== END 2022-02-19 15:48 | disposition home or self-care (01) ==
LOC: LAB 15:47
PROVIDERS: ATTEND Emergency Medicine
DX: T14.8XXA Other injury of unspecified body region, initial encounter (principal)
CPT/HCPCS: 36415; 80053; 85025; 85610; 86140

== ENCOUNTER 2022-04-20 11:45 | Outpatient (CLI) | payer MEDICARE, OTHER | END 2022-04-20 11:46 | disposition home or self-care (01) | LOC: LAB.S 11:45 | PROVIDERS: ATTEND Specialist | DX: C61 Malignant neoplasm of prostate (principal); D47.2 Monoclonal gammopathy | CPT/HCPCS: 36415; 84153 ==

== ENCOUNTER 2023-04-21 11:43 | Outpatient (CLI) | payer MEDICARE, OTHER | END 2023-04-21 11:44 | disposition home or self-care (01) | LOC: LAB.S 11:43 | PROVIDERS: ATTEND Specialist | DX: C61 Malignant neoplasm of prostate (principal); D47.2 Monoclonal gammopathy | CPT/HCPCS: 36415; 84153 ==

== ENCOUNTER 2023-09-18 11:47 | Outpatient (CLI) | payer MEDICARE, OTHER ==
[2023-09-18 14:39] LABS: BASOPHILS % (AUTO) 0.7 %; EOSINOPHILS # (AUTO) 0.2 10^3/uL (0.0-0.7); EOSINOPHILS % (AUTO) 3.3 %; HCT - HEMATOCRIT 40.4 % (42.0-52.0); HGB - HEMOGLOBIN 13.1 g/dL (14.0-18.0); LYMPHOCYTES # (AUTO) 1.3 10^3/uL (1.5-3.5); LYMPHOCYTES % (AUTO) 24.6 %; MEAN CORPUSCULAR HEMOGLOBIN 31.6 pg (27.0-31.0); MEAN CORPUSCULAR HGB CONC 32.4 g/dL (32.0-36.0); MEAN CORPUSCULAR VOLUME 97.3 fL (80.0-94.0); MEAN PLATELET VOLUME 9.7 fL (7.4-11.4); MONOCYTES # (AUTO) 0.7 10^3/uL (0.0-1.0); MONOCYTES % (AUTO) 13.7 %; NEUTROPHILS # (AUTO) 3.1 10^3/uL (1.5-6.6); NEUTROPHILS % (AUTO) 57.5 %; PLT - PLATELET COUNT 257 10^3/uL (130-450); RED BLOOD COUNT 4.15 10^6/uL (4.70-6.10); RED CELL DISTRIBUTION WIDTH 13.1 % (12.0-15.0); WHITE BLOOD COUNT 5.4 x10^3/uL (4.8-10.8)
[2023-09-18 15:32] LABS: ALBUMIN/GLOBULIN RATIO 1.3 (1.0-2.2); BILIRUBIN,TOTAL 0.7 mg/dL (0.2-1.0); CALCIUM 9.2 mg/dL (8.5-10.3); CREATININE 0.8 mg/dL (0.6-1.3); POTASSIUM 4.2 mmol/L (3.5-4.5); TOTAL PROTEIN 5.3 g/dL (6.4-8.9)
== END 2023-09-18 11:48 | disposition home or self-care (01) ==
LOC: LAB.S 11:47
PROVIDERS: ATTEND Physician Assistant Medical
DX: R23.8 Other skin changes (principal); K62.5 Hemorrhage of anus and rectum
CPT/HCPCS: 36415; 80053; 85025; 85610

== ENCOUNTER 2023-10-11 08:00 | Outpatient (CLI) | payer MEDICARE, OTHER | END 2023-10-11 23:59 | disposition home or self-care (01) | LOC: LAB 08:00 | PROVIDERS: ATTEND Urology | DX: R31.9 Hematuria, unspecified (principal) | CPT/HCPCS: 87077; 87086; 87181 ==

== ENCOUNTER 2023-10-23 08:54 | Day surgery (SDC) | payer MEDICARE, OTHER ==
[2023-10-23] MEDS: LACTATED RINGERS 1,000 ML IV ONE ×2 (09:43→11:34)
--- NOTE | 2023-10-23 10:34 | ANESTHESIA ---
Pre-Anesthesia VS, & Labs - Diagnosis screening - Procedure colonoscopy Height: 6 ft 4 in Weight (kg): 86 kg Body Mass Index: 23.1 BMI Classification: Normal - NPO >8 hours Last Fluid Intake: am prep - Lab Results Lab results reviewed: Yes Home Medications and Allergies Home Medications: Ambulatory Orders No Known Home Medications 10/20/23 No Known Home Medications 10/20/23 Allergies/Adverse Reactions: Allergies Allergy/AdvReac Type Severity Reaction Status Date / Time amoxicillin Allergy Anaphylaxis Verified 10/23/23 10:05 Anes History & Medical History - Anesthetic History Anesthesia Complications: reports: No previous complications Family history of Anesthesia Complications: Denies Family history of Malignant Hyperthermia: Denies - Medical History Cardiovascular: reports: None Pulmonary: reports: Sleep apnea, CPAP use Urinary: reports: Chronic bladder infection Musculoskeletal: reports: Osteoarthritis Endocrine/Autoimmune: reports: None Skin: reports: Other Smoking Status: Current every day smoker - Surgical History General: reports: Colonoscopy, Other Eyes Ears Nose Throat (EENT): reports: Cataracts Urologic: reports: Testicular surgery Exam General: Alert, Oriented x3, Cooperative Dental: Other (implants at 3 teeth, permanent) Mouth Openin Fingerbreadth Neck Mobility: Normal Mallampati classification: II Thyromental Distance: 4-6 cm Respiratory: Lungs clear, Normal breath sounds, No respiratory distress Cardiovascular: Regular rate, Other (NSR with PAC on tele) Neurological: Normal speech Mental/Cognitive Status: Alert/Oriented X3, Normal for patient Cognitive Status: Within normal limits Plan Anesthesia Type: Total IV Consent for Procedure(s) Verified and Reviewed: Yes Code Status: Attempt Resuscitation ASA classification: 2-Mild systemic disease Is this case an emergency?: No
[2023-10-23] MEDS ORDERED: PROPOFOL 500 MG/50 ML 500 MG/50 ML VIAL ONE (10:55)
[2023-10-23 11:43] VITALS: O2SAT 100
[2023-10-23 12:23] VITALS: BP 136/79
--- NOTE | 2023-10-23 13:00 | ANESTHESIA POST OP EVALUATION ---
Anesthesia Post Eval - Post Anesthesia Eval Vitals: Last Vital Signs Temp 36.4 C L 10/23/23 12:00 Pulse 59 L 10/23/23 12:00 Resp 16 10/23/23 12:00 BP 136/79 H 10/23/23 12:00 Pulse Ox 100 10/23/23 12:00 O2 Flow Rate CV Function Including HR & BP: Stable Pain Control: Satisfactory Nausea & Vomiting: Negative Mental Status: Baseline Respiratory Status: Airway Patent Hydration Status: Satisfactory Anesthesia Complications: None
== END 2023-10-23 08:55 | disposition home or self-care (01) ==
LOC: SDS 08:54
PROVIDERS: ATTEND Surgery
PROC: 0DBN8ZX Excision of Sigmoid Colon, Via Natural or Artificial Opening Endoscopic, Diagnostic (ICD-10-PCS; 2023-10-23)
PROC: 0DBL8ZX Excision of Transverse Colon, Via Natural or Artificial Opening Endoscopic, Diagnostic (ICD-10-PCS; principal; 2023-10-23 10:45)
DX: Z12.11 Encounter for screening for malignant neoplasm of colon (principal); D12.3 Benign neoplasm of transverse colon; K57.30 Diverticulosis of large intestine without perforation or abscess without bleeding; G47.30 Sleep apnea, unspecified; Z87.891 Personal history of nicotine dependence; Z85.46 Personal history of malignant neoplasm of prostate
CPT/HCPCS: 45380; 45385; J7120

== ENCOUNTER 2024-03-29 12:21 | Outpatient (CLI) | payer MEDICARE, OTHER ==
[2024-03-29 20:16] LABS: BASOPHILS % (AUTO) 0.8 %; EOSINOPHILS # (AUTO) 0.2 10^3/uL (0.0-0.7); EOSINOPHILS % (AUTO) 3.2 %; HCT - HEMATOCRIT 39.6 % (42.0-52.0); HGB - HEMOGLOBIN 12.8 g/dL (14.0-18.0); LYMPHOCYTES # (AUTO) 1.1 10^3/uL (1.5-3.5); MEAN CORPUSCULAR HEMOGLOBIN 31.8 pg (27.0-31.0); MEAN CORPUSCULAR HGB CONC 32.3 g/dL (32.0-36.0); MEAN CORPUSCULAR VOLUME 98.3 fL (80.0-94.0); MEAN PLATELET VOLUME 9.7 fL (7.4-11.4); MONOCYTES # (AUTO) 0.6 10^3/uL (0.0-1.0); MONOCYTES % (AUTO) 11.5 %; NEUTROPHILS # (AUTO) 3.4 10^3/uL (1.5-6.6); NEUTROPHILS % (AUTO) 64.3 %; PLT - PLATELET COUNT 245 10^3/uL (130-450); RED BLOOD COUNT 4.03 10^6/uL (4.70-6.10); RED CELL DISTRIBUTION WIDTH 13.4 % (12.0-15.0); WHITE BLOOD COUNT 5.3 x10^3/uL (4.8-10.8)
[2024-03-29 20:22] LABS: MAGNESIUM 1.7 mg/dL (1.7-2.3)
[2024-03-29 20:30] LABS: THYROID STIMULATING HORMONE 3.65 uIU/mL (0.34-5.60)
[2024-03-29 20:36] LABS: ALBUMIN 2.8 g/dL (3.2-5.5); ALBUMIN/GLOBULIN RATIO 1.3 (1.0-2.2); BILIRUBIN,TOTAL 0.6 mg/dL (0.2-1.0); CALCIUM 8.8 mg/dL (8.5-10.3); CREATININE 0.9 mg/dL (0.6-1.3); POTASSIUM 4.2 mmol/L (3.5-4.5)
== END 2024-03-29 12:22 | disposition home or self-care (01) ==
LOC: LAB.S 12:21
PROVIDERS: ATTEND Registered Nurse
DX: M79.2 Neuralgia and neuritis, unspecified (principal); R60.9 Edema, unspecified; M79.672 Pain in left foot
CPT/HCPCS: 36415; 80053; 83735; 84443; 85025

== ENCOUNTER 2024-05-08 11:15 | Outpatient (CLI) | payer MEDICARE, OTHER | END 2024-05-08 11:16 | disposition home or self-care (01) | LOC: LAB.S 11:15 | PROVIDERS: ATTEND Specialist | DX: C61 Malignant neoplasm of prostate (principal); D47.2 Monoclonal gammopathy | CPT/HCPCS: 36415; 84153 ==